=== PATIENT | male | born 1975 | race Caucasian/White ===

== ENCOUNTER 2020-11-10 14:44 | Emergency (ER) | payer BC, SELFPAY ==
[2020-11-10 14:46] VITALS: BP 139/87; PULSE 61; RESP 14; TEMP 36.5; O2SAT 97; BMI 22.0
--- NOTE | 2020-11-10 14:57 | EKG12_ITS ---
Test Reason : CP Blood Pressure : / mmHG Vent. Rate : 063 BPM Atrial Rate : 063 BPM P-R Int : 132 ms QRS Dur : 100 ms QT Int : 432 ms P-R-T Axes : 061 044 044 degrees QTc Int : 442 ms Normal sinus rhythm Minimal voltage criteria for LVH, may be normal variant Borderline ECG Confirmed by SHUKRI ZABALA, NICHOLAS ([id number]), news assignment editor JOHNNA ABURTO ([id number]) on 11/12/2020 11:06:01 AM Referred By: ARIANNA Confirmed By:NICHOLAS WATT MD
[2020-11-10 14:59] VITALS: O2SAT 96
[2020-11-10 15:03] LABS: Absolute Lymphocyte Count 2.11 X10^3/uL (0.83-4.51); Absolute Neutrophil Count 3.2 X10^3/uL (2.0-7.7); Basophil# 0.06 X10^3/uL; Eosinophil# 0.05 X10^3/uL; Eosinophils% 0.8 % (0-5); Hematocrit 47.7 % (40-54); Hemoglobin 15.8 g/dL (13.0-16.5); Lymphocyte # 2.11 X10^3/ul (4.0); Lymphocyte % 34.6 % (19-41); Mean Corp Hgb Conc 33.1 g/dL (32-36); Mean Corpuscular Hgb 29.8 pg (27.0-32.0); Mean Corpuscular Volume 89.8 fL (80-94); Mean Platelet Vol. 9.9 fl (6.2-12.0); Monocyte# 0.63 X10^3/uL; Monocyte% 10.3 % (0-10); NRBC Flagged by Analyzer 0 % (0-5); Neutrophil # 3.22 X10^3/uL (2.7-7.7); Platelet Count 270 K/mm3 (150-450); RBC Distribution Width SD 39.6 fl (35.1-43.9); Red Blood Count 5.31 M/mm3 (4.6-6.2); White Blood Count 6.1 K/mm3 (4.4-11.0)
--- NOTE | 2020-11-10 15:05 | RAD_ITS ---
STUDY: X-RAY CHEST REASON FOR EXAM: Male, 45 years old. DULL CP FOR A FEW DAYS. PAIN INCREASING TODAY. MOUTH TASTES FUNNY. PAIN RADIATES DOWN LT ARM TECHNIQUE: Single AP portable view of the chest. COMPARISON: Comparison is made with prior study dated 08/07/2016. FINDINGS: EKG electrodes are seen. Hyperinflation. The lungs are clear. There is no demonstrated pleural abnormality. Normal size heart. Normal mediastinum and reed. Normal visualized pulmonary arteries. Normal visualized aortic arch and descending thoracic aorta. Normal visualized thoracic spine. Normal visualized ribs, clavicles, and shoulders. There is no demonstrated abnormality of the visualized soft tissue structures of the upper abdomen. RAD/Chest 1 View (Portable) IMPRESSION: Hyperinflation. The lungs are clear. Electronically Signed: Flex Bunch MD at 15:38 EST , Service support ,
[2020-11-10] MEDS: Aspirin 81 MG TAB.CHEW 324 MG PO (15:17)
[2020-11-10 15:18] VITALS: BP 125/87; PULSE 74
[2020-11-10] MEDS: Nitroglycerin SL (ED/IMG/CATH) 0.4 MG TABLET SUBLINGUAL ×3 (15:18→15:33)
[2020-11-10 15:26] VITALS: BP 119/81; PULSE 67
[2020-11-10 15:32] LABS: Anion Gap 5 (5-15); BUN 11 mg/dL (7-18); BUN/Creat Ratio 13.4 RATIO (10-20); Calcium,Total 8.8 mg/dL (8.5-10.1); Chloride 108 mmol/L (98-107); Creatinine, Serum 0.82 mg/dL (0.70-1.30); EST Glomerular Filtration Rate 108 mL/min (>60); Est Glom Filt Rate - Afr Amer 131 mL/min (>60); Glucose 87 mg/dL (74-106); Potassium 3.6 mmol/L (3.5-5.1); Sodium Level 140 mmol/L (136-145)
[2020-11-10 15:33] VITALS: BP 126/86; PULSE 60
--- NOTE | 2020-11-10 15:33 | ED.VISSUMM ---
- ER Visit Summary Date of Service: 11/10/20 Chief Complaint: Chest pain History of Present Illness: The patient is a 45 M who presents with chest pain that has been intermittent over the past couple days but has been constant throughout the day today. Patient states the pain is over the left chest. Patient states the pain is a dull ache but sharp at times. Patient states nothing makes it better and nothing makes it worse. Patient does admit to some shortness of breath with it. Patient also admits. Patient denies any nausea or vomiting. Patient denies any shortness of breath. Patient admits to some mild lightheadedness. Patient denies any cough or fevers. Patient has a family history of coronary artery disease with mother who had an VA in her 40s. Patient denies any other cardiac or PE risk factors. Physical Examination: Vital signs are stable. Patient is afebrile. Patient is in no acute distress. Oral mucosa is pink and moist. Neck is supple. Trachea is midline. There is no JVD noted. Heart was regular rate and rhythm. Lungs are clear and equal bilaterally. Abdomen is soft. Bowel sounds are normal. There is no tenderness. There is no rebound or guarding noted. Skin is warm dry. Cranial nerves II through XII are intact. There are no focal motor or sensory deficits noted. Extremities are intact. There is no calf tenderness or edema. Test Results: EKG was obtained. On my interpretation, there is a normal sinus rhythm with a rate of 63. There are no acute ST or T wave changes. CBC, basic metabolic profile, and troponin were obtained and were within normal limits. Portable 1 view chest x-ray was obtained. On my interpretation, lung reddy are clear. There is normal cardiac silhouette. Bony thorax is normal. There is no acute process noted. Radiologist also interpreted the x-ray and agrees. Emergency Department Course and Treatment: Patient was given aspirin and sublingual nitroglycerin here. Patient felt better on reevaluation. Patient has a HEART score of 2. Patient was advised that this is low risk for acute cardiac event. Patient does not want to wait for a delta troponin. Patient was instructed to follow-up with his primary care physician in 5 to 7 days for further evaluation. Patient understood and was agreeable with the plan. All questions were answered. Disposition: Discharge home Impression: 1. Chest pain of uncertain etiology This note was generated with Dragon dictation software. It may contain incorrect words, spelling, and punctuation that were not noted in review of the chart prior to signing ED Disposition - Plan for ED Patient: Disposition: Home or Assisted Living Diagnosis: Chest pain of uncertain etiology Instructions: ED Chest Pain, Uncertain Cause Referrals: Yoli Newell MD [Primary Care Provider] - 5-7 Days
[2020-11-10 16:10] VITALS: BP 119/83; PULSE 67; PULSE 69; RESP 18; TEMP 36.7; O2SAT 97
== END 2020-11-10 16:11 | disposition home or self-care (01) ==
PROVIDERS: Emergency Provider Emergency Medicine; PCP Internal Medicine
DX: R07.9 Chest pain, unspecified (principal)
CPT/HCPCS: 71045; 80048; 84484; 85025; 93005; 99285; A4216

== ENCOUNTER 2024-03-04 07:57 | Emergency (ER) | payer BC, SELFPAY ==
[2024-03-04 07:57] VITALS: BP 175/92; PULSE 57; RESP 14; TEMP 36.6; O2SAT 100; BMI 21.7
--- NOTE | 2024-03-04 08:43 | EX.ED.DYSGE1 ---
HPI History of Present Illness Chief Complaint: Abscess Informant: patient Narrative Narrative: Patient presents with 3-4 painful bumps under his right armpit as well as nausea and vomiting. Patient states he noted the painful bumps in his axilla a couple days ago. They are enlarging in size. Last evening he was extremely fatigued and woke this morning with nausea and vomiting. He did have some slight pain with bowel movement this morning but no diarrhea. He had some chills this morning but no measured fever. He states his mouth feels very dry. PFSH PFSH Medical History no medical history no medical history Home Medications ?Medication ?Instructions ?Recorded ?Last Taken ?Type cephalexin 500 mg capsule 500 mg PO Q6 #40 CAPSULES 03/04/24 Unknown Rx ondansetron 4 mg disintegrating 4 mg PO Q8H PRN PRN Nausea #10 tabs 03/04/24 Unknown Rx tablet sulfamethoxazole 800 1 tab PO BID #20 tabs 03/04/24 Unknown Rx mg-trimethoprim 160 mg tablet (Bactrim DS) Allergy/AdvReac Type Severity Reaction Status Date / Time promethazine HCl (From AdvReac Inflammation Verified 03/04/24 07:58 Phenergan) of vein Social History Smoking Status: Never smoker ROS ROS ED Constitutional Constitutional ED: Reports chills; Denies fever(s) Eyes Eyes: Denies change in vision or discharge from eye(s) ENT ENT ED: Denies discharge from eye(s), rhinorrhea or sore throat Cardiovascular Cardiovascular: Denies chest pain Respiratory/Chest Respiratory/Chest: Denies cough or dyspnea Gastrointestinal Gastrointestinal: Reports nausea and vomiting; Denies abdominal pain Genitourinary Genitourinary ED: Denies difficulty urinating or dysuria Musculoskeletal Musculoskeletal: Denies back pain Integumentary Reports abscess; Denies Abrasions or rash Neurologic Neurologic: Reports weakness; Denies headache(s) Psychiatric Psychiatric: Denies anxiety or depression Allergic/Immunologic Allergic/Immunologic ED: Denies lip swelling or urticaria EXAM Physical Exam Const Vital Signs: 03/04/24 07:57 Temperature 98 F Temperature Source Temporal Pulse Rate 57 L Respiratory Rate 14 Blood Pressure 175/92 H Blood Pressure Mean 119 Pulse Ox 100 Oxygen Delivery Method Room Air Positive well nourished and well developed General Appearance ED: well developed HEENT Reports dry mucous membranes Mouth ED: Yes dry mucous membranes Mouth: dry mucous membranes Eyes EOMs intact bilaterally Chest Wall inspection of chest normal and palpation of chest normal Resp normal respiratory effort and clear to auscultation bilaterally Cardio regular rate and regular rhythm GI non-tender Palpation: soft Extremity Extremity Narrative: 3 small cutaneous abscesses in the right axilla, each measuring approximately 4 mm in diameter. No significant fluctuance. Neuro oriented x3 and no sensory deficits noted Motor Exam: strength 5/5 throughout Psych mental status grossly normal MDM MDM MDM Narrative Medical decision making narrative: Given the patient's constitutional symptoms, IV line is established. Patient is given Toradol, Zofran, IV fluids. Labwork obtained to evaluate for leukocytosis, anemia, and electrolyte derangement. Urinalysis obtained to evaluate for infection/hematuria. History & Record Review Discussion w/independent historian: Patient Lab Data Attestation: I reviewed the patient's lab results. Labs: Laboratory Results - last 24 hr 03/04/24 03/04/24 08:45 08:55 WBC 5.9 RBC 5.52 Hgb 16.1 Hct 48.9 MCV 88.6 MCH 29.2 MCHC 32.9 RDW Std Deviation 39.3 RDW Coeff of Syeda 12.0 Plt Count 247 MPV 9.7 Immature Gran % (Auto) 0.500 Neut % (Auto) 60.4 Lymph % (Auto) 26.4 [place] % (Auto) 10.0 Eos % (Auto) 1.9 Baso % (Auto) 0.8 Absolute Neuts (auto) 3.6 Absolute Lymphs (auto) 1.56 Nucleated RBC % 0 Sodium 139 Potassium 4.6 Chloride 107 Carbon Dioxide 29.0 Anion Gap 3 L BUN 10 Creatinine 0.88 Estim Creat Clear Calc 109.85 Est GFR (MDRD) Af Amer 119 Est GFR (MDRD) Non-Af 98 BUN/Creatinine Ratio 11.4 Glucose 102 Calcium 9.2 Urine Color Yellow Urine Clarity Clear Urine pH 7.0 Ur Specific [place] 1.010 Urine Protein Negative Urine Glucose (UA) Normal Urine Ketones Negative Urine Occult Blood Negative Urine Nitrite Negative Urine Bilirubin Negative Urine Urobilinogen Normal Ur Leukocyte Esterase Negative Urine RBC 0 SEEN Urine WBC 0 SEEN Ur Squamous Epith Cells 0 SEEN Urine Bacteria 0 SEEN Urine Mucus 0 SEEN Treatment and Re-Evaluation :: CBC was normal white count 5.9 with normal differential. Hemoglobin is 16.1. Chemistry studies unremarkable with a glucose of 102. Urinalysis is unremarkable. On repeat evaluation patient does feel improved after Zofran and Toradol. I will treat him with Bactrim and Keflex for his cutaneous abscesses. Wound care discussed with him and I did advise that if it worsens we do need to see him back for possible I&D, however at this time I do not feel I&D would be beneficial. He voices understanding and agreement. Discharge Plan Triage Chief Complaint: Abscess Other Complaint: Cellulitis ED Provider: Jaylin Parsons Dx/Rx/DC Orders Clinical Impression: Cutaneous abscess, Vomiting Instructions: ED Abscess Antibiotic Treatment Only, ED Vomiting (Adult) Prescriptions: New sulfamethoxazole-trimethoprim [Bactrim DS] 800-160 mg tablet 1 tab PO BID Qty: 20 0RF cephalexin 500 mg capsule 500 mg PO Q6 Qty: 40 0RF ondansetron 4 mg tablet,disintegrating 4 mg PO Q8H PRN PRN (Reason: Nausea) Qty: 10 0RF Stand Alone Forms: ED Work / School Excuse Primary Care Provider: Yoli Newell Referrals: Yoli Newell MD [Primary Care Provider] - 1 Week Print Language: Citizen Of [place] Disposition Disposition: Home, Self Care
[2024-03-04] MEDS: Ondansetron 4 MG/2 ML Vial IV (08:55)
[2024-03-04] MEDS: 0.9% Normal Saline (1000mL) 1,000 ML 1000 ML IV (08:55)
[2024-03-04] MEDS: Ketorolac 30 MG/ML Syringe IV (08:55)
[2024-03-04 08:59] LABS: Absolute Lymphocyte Count 1.56 X10^3/uL (0.83-4.51); Absolute Neutrophil Count 3.6 X10^3/uL (2.0-7.7); Basophil# 0.05 X10^3/uL; Basophil% 0.8 % (0-1); Eosinophil# 0.11 X10^3/uL; Eosinophils% 1.9 % (0-5); Hematocrit 48.9 % (40-54); Hemoglobin 16.1 g/dL (13.0-16.5); Lymphocyte # 1.56 X10^3/ul (0.83-4.51); Lymphocyte % 26.4 % (19-41); Mean Corp Hgb Conc 32.9 g/dL (32-36); Mean Corpuscular Hgb 29.2 pg (27.0-32.0); Mean Corpuscular Volume 88.6 fL (80-94); Mean Platelet Vol. 9.7 fl (6.2-12.0); Monocyte# 0.59 X10^3/uL; NRBC Flagged by Analyzer 0 % (0-5); Neutrophil # 3.57 X10^3/uL (2.7-7.7); Neutrophil % 60.4 % (47-70); Platelet Count 247 K/mm3 (150-450); RBC Distribution Width SD 39.3 fl (35.1-43.9); Red Blood Count 5.52 M/mm3 (4.6-6.2); White Blood Count 5.9 K/mm3 (4.4-11.0)
[2024-03-04 09:05] LABS: Bacteria 0 SEEN /hpf (None Seen); Mucous, Urine 0 SEEN /hpf (<or=2+); Red Blood Cells-Urine 0 SEEN /hpf (0-5); Squamous Epithelial Cells - UA 0 SEEN /hpf (0-5); White Blood Cells 0 SEEN /hpf (0-5)
[2024-03-04 09:08] LABS: Color, Urine Yellow (Yellow); Glucose, Dipstick Normal (Normal); Ketone-Dipstick Negative (Negative); Leukocyte Esterase-Dipstick Negative /ul (Negative); Nitrite-Dipstick Negative (Negative); Occult Blood-Urine Negative /ul (Negative); Protein-Dipstick Negative (Negative); Urine Bilirubin Dipstick Negative (Negative); Urine Clarity Clear (Clear); Urine Urobilinogen Normal (Normal)
[2024-03-04 09:12] LABS: Anion Gap 3 (5-15); BUN 10 mg/dL (7-18); BUN/Creat Ratio 11.4 RATIO (10-20); Calcium,Total 9.2 mg/dL (8.5-10.1); Chloride 107 mmol/L (98-107); Creatinine, Serum 0.88 mg/dL (0.70-1.30); EST Glomerular Filtration Rate 98 mL/min (>60); Est Glom Filt Rate - Afr Amer 119 mL/min (>60); Estimated Creatinine Clearance 109.85 ml/min; Glucose 102 mg/dL (74-106); Potassium 4.6 mmol/L (3.5-5.1); Sodium Level 139 mmol/L (136-145)
[2024-03-04] MEDS: Cephalexin 250 MG Capsule 500 MG PO (09:40)
[2024-03-04] MEDS: Smz/Tmp Ds Tablet 1 TABLET PO (09:41)
[2024-03-04 09:42] VITALS: BP 148/101; PULSE 187; RESP 18; TEMP 36.6; O2SAT 98
== END 2024-03-04 09:48 | disposition home or self-care (01) ==
PROVIDERS: Emergency Provider Emergency Medicine; PCP Internal Medicine; Visit Provider Emergency Medicine
DX: L02.411 Cutaneous abscess of right axilla (principal); R11.10 Vomiting, unspecified
CPT/HCPCS: 80048; 81001; 85025; 96361; 96374; 96375; 99282; J7030; J2405

== ENCOUNTER → 2024-03-31 | Outpatient (CLI) | payer BC, SELFPAY ==
--- NOTE | 2024-03-31 07:27 | US_ITS ---
STUDY: SUPERFICIAL ULTRASOUND - RIGHT AXILLA. REASON FOR EXAM: Male, 48 years old. MASS OF RT AXILLA TECHNIQUE: A superficial ultrasound was performed with real-time and static sparks-scale imaging. COMPARISON: None. FINDINGS: The right axillary region was examined with ultrasound. There is a 1.7 cm x 0.7 cm x 0.4 cm benign-appearing lymph node in the right axilla. US/Ext Non Vasc Limited/Soft Tiss IMPRESSION: 1.7 cm x 0.7 cm x 0.4 cm benign-appearing lymph node in the right axilla Electronically Signed: Flex Bunch MD at 8:38 EDT ,
== END | disposition home or self-care (01) ==
PROVIDERS: PCP Internal Medicine; Referring Provider Clinical Nurse Specialist; Visit Provider Clinical Nurse Specialist
DX: R22.31 Localized swelling, mass and lump, right upper limb (principal)
CPT/HCPCS: 76882